=== PATIENT | male | born 1935 | race Caucasian/White ===

== ENCOUNTER 2017-04-28 07:06 | Outpatient (CLI) | payer MEDICARE ==
[2017-04-28 09:19] LABS: #Basophils 0.1 thou/uL (0.0-0.2); #Eosinphils 0.5 thou/uL (0.0-0.7); #Lymphocytes 1.6 thou/uL (1.20-3.40); #Monocytes 0.5 thou/uL (0.11-0.59); #Neutrophils 4.3 thou/uL (1.40-6.50); %Basophils 0.9 % (0.0-1.0); %Eosinophils 6.9 % (0.0-10.0); %Lymphocytes 22.9 % (21.0-51.0); %Monocytes 7.5 % (0.0-10.0); %Neutrophils 61.8 % (42.0-75.0); Hemoglobin 14.2 g/dL (14.0-18.0); Mean Corpuscular HGB CONC 32.8 g/dL (32.0-36.0); Mean Corpuscular Hemoglobin 29.6 pg (27.0-31.0); Mean Corpuscular Volume 90.4 fl (80.0-94.0); Mean Platelet Volume 6.3 fL (7.4-10.4); Platelet Count 288 thou/uL (130-400); RBC Distribution Width 13.9 % (11.5-14.5); Red Blood Cell (RBC) Count 4.78 mill/uL (4.70-6.10)
[2017-04-28 09:30] LABS: ALT (SGPT) 17 U/L (8-55); AST (SGOT) 16 U/L (5-34); Albumin 4.2 g/dL (3.4-4.8); Alkaline Phosphatase 87 U/L (40-150); Anion Gap 17 mmol/L (10-20); BUN (Urea Nitrogen) 20 mg/dL (8.4-25.7); Bilirubin, Total 0.5 mg/dL (0.2-1.2); Calc. Creatinine Clearance 0 mL/min (70-130); Calcium 9.1 mg/dL (7.8-10.44); Carbon Dioxide 24 mmol/L (23-31); Cardiac Risk 4.2 (Less than 4.5); Chloride 107 mmol/L (98-107); Cholesterol 191 mg/dl (< 200 Desired); Estimated GFR-MDRD 53; Globulin 2.7 g/dL (2.4-3.5); Glucose 98 mg/dL (83-110); HDL Cholesterol 45 mg/dL (>60 Neg Risk); LDL Cholesterol, Calculated 127 mg/dL; Potassium 3.9 mmol/L (3.5-5.1); Protein, Total 6.9 g/dL (5.8-8.1); Sodium 144 mmol/L (136-145); Triglycerides 94 mg/dL (Less than 150)
[2017-04-28 09:37] LABS: Hemoglobin A1c 5.5 % (4.0-6.0)
[2017-04-28 10:00] LABS: Free T4 (Free Thyroxine) 0.79 ng/dL (0.70-1.48); PSA-Symptomatic (DIAGNOSTIC) 0.12 ng/mL (0-4.0); Thyroid Stimulating Hormone 5.5182 uIU/mL (0.35-4.94); Vitamin D, 25 Hydroxy 30.5 ng/ml (> 30.0)
[2017-04-28] MEDS ORDERED: Iopamidol 370 76% 100 ML VIAL ONE (11:48)
--- NOTE | 2017-04-28 16:53 | CT ---
CT ABDOMEN AND PELVIS WITH IV AND ORAL CONTRAST: History: Abdominal pain. Distention. Comparison: 10-28-11 FINDINGS: The lung bases are clear. Right hip prosthesis is apparent. There is prominent calcification through out the arterial structures. The liver, spleen, kidneys, adrenal glands and pancreas have a normal C T appearance. Prominent calcifications are apparent throughout the arterial structures. Nonspecific lymph nodes are scattered about the retroperitoneum and mesentery. Diverticula arise from the colon without adjacent inflammation. IMPRESSION: 1. Atherosclerosis. 2. Chronic type findings appear stable. No acute abnormalities are demonstrated. POS: [facility]
[2017-04-28 17:34] LABS: Iron 77 ug/dL (65-175)
[2017-04-28 17:47] LABS: Ferritin 81.37 ng/mL (22-322)
== END 2017-04-28 07:07 | disposition home or self-care (01) ==
LOC: MADLAB 07:06
PROVIDERS: ATTEND Family Medicine
DX: K59.01 Slow transit constipation (principal); D53.9 Nutritional anemia, unspecified; R19.7 Diarrhea, unspecified; E78.5 Hyperlipidemia, unspecified; N40.1 Benign prostatic hyperplasia with lower urinary tract symptoms; I10 Essential (primary) hypertension; R73.9 Hyperglycemia, unspecified
CPT/HCPCS: 74177; 80053; 80061; 82306; 82728; 82746; 83036; 83540; 84153; 84439; 84443; 85025

== ENCOUNTER 2017-08-04 11:54 | Outpatient (CLI) | payer MEDICARE ==
--- NOTE | 2017-08-04 14:40 | CT ---
LUMBAR SPINE CT WITHOUT CONTRAST: 08/04/2017 HISTORY: Low back pain for several months. COMPARISON: None. TECHNIQUE: Serial axial CT imaging is obtained at 2.5 mm intervals, from the lower thoracic spine through the m id sacrum, without contrast media. Coronal and sagittal reformatted imaging obtained. FINDINGS: The lack of contrast media limits assessment of the extraosseous structures. Evaluation for central canal and/or neural foraminal stenosis is limited on routine CT. There is extensive atherosclerotic calcification of the abdominal aorta and its branches. There is partially imaged colonic diverticulosis in the pelvis. There is bilateral degenerative change invol ving the sacroiliac joints. The sagittal imaging demonstrates minimal retrolisthesis at L1-L2, measuring approximately 3 mm. T12-L1: There is disk space narrowing, anterior osteophyte formation, and a vacuum disk. There is no osseous cause of significant central canal or neural foraminal stenosis. L1-L2: There is disk space narrowing, anterior osteophyte formation, and a vacuum disk. There is n o osseous cause of significant central canal or neural foraminal stenosis. L2-L3: Mild bilateral facet hypertrophy. No osseous cause of significant central canal or neural f oraminal stenosis. L3-L4: There is bilateral facet hypertrophy and hypertrophy of the ligamentum flavum with probable at least mild central canal stenosis and probable mild bilateral neural foraminal stenosis. L4-L5: There is prominent bilateral facet hypertrophy. There is ligamentum flavum hypertrophy and mild disk bulge with at least moderate central canal stenosis suspected. Mild/moderate bilateral ne ural foraminal stenosis suspected as well. L5-S1: There is disk space narrowing and a vacuum disk. There is prominent bilateral facet hypertr ophic change. Neural foraminal stenosis is suspected on the left. No osseous cause of significant central canal stenosis. No acute fracture or evidence of dislocation is noted. IMPRESSION: 1. Multilevel degenerative change noted within the lumbar spine. This could be better assessed for central canal and/or neural foraminal stenosis via MRI or CT myelogram. 2. Atherosclerotic disease. POS: [facility]
== END 2017-08-04 11:55 | disposition home or self-care (01) ==
LOC: MADCT 11:54
PROVIDERS: ATTEND Family Medicine
DX: M54.17 Radiculopathy, lumbosacral region (principal); M54.5 Low back pain; M47.816 Spondylosis without myelopathy or radiculopathy, lumbar region; I70.90 Unspecified atherosclerosis
CPT/HCPCS: 72131

== ENCOUNTER 2018-03-13 16:48 | Outpatient (CLI) | payer MEDICARE ==
--- NOTE | 2018-03-13 18:07 | RAD ---
LEFT FOOT TWO VIEWS: HISTORY: Foot pain. COMPARISON: 03/18/2009 FINDINGS: Lisfranc joint alignment is anatomic. Pes planus is apparent on the lateral view. Amputation of the second toe is again demonstrated. Chronic deformity of the big toe with lateral vivar bluxation at the first metatarsophalangeal joint and medial dislocation at the interphalangeal joint with adjacent osteophytes are similar to the previous study. Soft tissue swelling overlies the media l aspect of the big toe with a pocket of gas within the soft tissue swelling, measuring up to 0.6 cm. Osteophytosis is present throughout the remainder of the foot. IMPRESSION: 1. Prominently soft tissue swelling at the medial aspect of the big toe. Soft tissue gas suggests u lceration. Erosion of the lateral head of the proximal phalanx suggests an active process, such as o steomyelitis. 2. Postoperative changes, degenerative changes, and other chronic deformities are otherwise stable. POS: [facility]
== END 2018-03-13 16:49 | disposition home or self-care (01) ==
LOC: MADRAD 16:48
PROVIDERS: ATTEND Family Medicine
DX: M79.89 Other specified soft tissue disorders (principal); M79.672 Pain in left foot; M19.072 Primary osteoarthritis, left ankle and foot; M21.6X2 Other acquired deformities of left foot; Z98.890 Other specified postprocedural states

== ENCOUNTER 2018-06-07 17:30 | Inpatient (IN) | payer MEDICARE ==
[2018-06-07 20:16] VITALS: BP 145/64
[2018-06-07] MEDS ORDERED: Prevnar 13-Val Conj/PF 0.5 ML SYRINGE IM ONE (21:00)
[2018-06-07 22:24] VITALS: BMI 30.4
[2018-06-07] MEDS ORDERED: rOPINIRole HCl 0.25 MG TAB PO PRN (22:40)
[2018-06-07] MEDS ORDERED: Acetaminophen 325 MG TAB PO PRN (22:45)
[2018-06-08] MEDS ORDERED: Levothyroxine Sodium 75 MCG TAB PO SCH (06:00)
[2018-06-08] MEDS ORDERED: Mometasone/Formoterol 60 PUFF AER INH SCH (07:00)
[2018-06-08] MEDS ORDERED: predniSONE 10 MG TAB PO SCH (08:00)
[2018-06-08] MEDS: hydrALAZINE 25 MG TAB PO SCH ×2 (08:52→15:56)
[2018-06-08] MEDS ORDERED: Prevnar 13-Val Conj/PF 0.5 ML SYRINGE IM ONE (09:00)
[2018-06-08] MEDS ORDERED: Allopurinol 100 MG TAB PO SCH (09:00)
[2018-06-08] MEDS ORDERED: Lisinopril 5 MG TAB PO SCH (09:00)
[2018-06-08] MEDS ORDERED: Amlodipine 5 MG TAB PO SCH (09:00)
[2018-06-08] MEDS ORDERED: Amiodarone 200 MG TAB PO SCH (09:00)
[2018-06-08] MEDS ORDERED: Nystatin Cream 15 GM TUBE TOP SCH (09:00)
[2018-06-08] MEDS ORDERED: Apixaban 5 MG TAB PO SCH (09:00)
[2018-06-08] MEDS ORDERED: Fluconazole 100 MG TAB PO SCH (09:00)
[2018-06-08 11:02] VITALS: TEMP 98
[2018-06-08] MEDS ORDERED: Lantiseptic Ointment 130 GM JAR TOP PRN (11:51)
--- NOTE | 2018-06-08 12:59 | HP ---
DATE OF ADMISSION: 06/07/2018 HISTORY OF PRESENT ILLNESS: Mr. Willis is an 83-year-old man who was admitted to [facility] on 05/19/2018 with altered mental status and atrial fibrillation with rapid ventricular response. He went through multiple medical issues including respiratory failure, medical encephalopathy, renal fa ilure, supraventricular tachycardia, aspiration pneumonia, demand ischemia and cellulitis of the left lower extremity during that hospitalization. He has recently been deemed to be stable enough for [facility] for physical therapy and occupational therapy to strengthen him so he can return home. ADMITTING HISTORY: Mr. Willis is evaluated today and has some degree of continued confusion, initiall y stating that the ambulance took him home and then brought him here to the hospital, but at other ti mes is appropriate. He is here for physical and occupational therapy and to regain his strength. Hi s sole desire is to be able to get home and sleep in his own bed. PAST MEDICAL HISTORY: His current problems include: 1. Stage AHA stage C heart failure. 2. History of atrial fibrillation with rapid ventricular response. Atrial fibrillation with rate co ntrolled by amiodarone. 3. Cellulitis of the left lower extremity which seems to be resolved. 4. Benign prostatic hypertrophy. 5. Hypertension. 6. Hypothyroidism. 7. Obesity. 8. Gout. 9. Medical encephalopathy. PAST MEDICAL HISTORY: Prior to his admission with included surgery for spinal stenosis, a hernia rep air, a right total hip replacement, bilateral hernia repair, appendectomy, spinal stenosis, benign pr ostatic hypertrophy, gout, peripheral vascular disease, depression, obesity, polyarthritis and an inf ection of the left great toe which was worrisome for osteomyelitis, but consult determined that there was not osteo at the time. REVIEW OF SYSTEMS: The patient does complain of having his backside be very sore with sitting and he does have multiple pressure ulcers and does have a fungal rash around his scrotum per nursing. SOCIAL HISTORY: He lives alone at home. Denies any current tobacco, alcohol, or recreational drug u se. FAMILY HISTORY: There is no relevant prior history. MEDICATIONS: Home medications included allopurinol had been increased 100 2 p.o. b.i.d., amlodipine 5 mg q.a.m., terazosin 5 mg at bedtime, ropinirole 1 p.o. b.i.d., nortriptyline 2 p.o. at bedtime, Me loxicam 15 mg daily, levothyroxine 75 mcg daily, tamsulosin 0.4 mg at bedtime. MEDICATIONS ON ADMISSION FROM [facility]: Include amiodarone 400 mg p.o. b.i.d., Eliquis 5 mg p.o . b.i.d., hydralazine 25 mg p.o. t.i.d., lisinopril 2.5 mg daily, Protonix 40 mg daily, prednisone 10 mg q.a.m., terazosin 10 mg p.o. at bedtime, tamsulosin, 0.4 mg at bedtime, levothyroxine 75 mcg p.o. q.a.m., allopurinol 100 mg p.o. b.i.d., amlodipine 5 mg q.a.m., ropinirole 0.25 p.o. b.i.d., nortrip tyline 20 mg p.o. at bedtime, DuoNeb 3 mL q.i.d. and p.r.n., and Dulera 200 mcg/5 mcg 2 puffs b.i.d. ALLERGIES: SULFA. CODE STATUS: He is a DNR and his daughter, Jossy Hernandez, is the medical power of attorney recruiter. He an d she have a good understanding of his wishes, which include to be able to get home to his house in h is own bed as soon as possible. PHYSICAL EXAMINATION: GENERAL: Mr. Willis is awake, alert, sitting in a Linda chair. He is not in acute distress except wh en he tries to move, when he says his back side hurts. VITAL SIGNS: Temperature 98.0, pulse 75, respiratory rate 18, O2 sat 92% on room air, blood pressure 155/71. He is on 2 liters by nasal cannula. He is afebrile. HEENT: Eyes; no icterus, no conjunctival pallor. Mucous membranes are moist. There is no erythema. There are no exudates. There are no white plaques. NECK: Supple. Trachea is trachea is midline. LUNGS: Show a few crackles about shelter up on the right with good air movement. CARDIOVASCULAR: Heart is irregular. Pulses are palpable. No carotid bruit. No pericardial rub. ABDOMEN: Bowel sounds present, soft, nontender. He is moving his bowels well. MUSCULOSKELETAL: Strength is 5/5 in the upper extremities and 3/5 in the lower extremities. He is m issing the left second toe on the right. The left great toe is misshapened status post surgery and h as a sore on it as does the bottom under the left metatarsal phalangeal joint. No adenopathy. NEURO: He is oriented to person, somewhat oriented to place and not oriented to time. He has period s of lucidity and periods of confusion. LABORATORY AND X-RAY FINDINGS: No current labs, although CBC and comp are ordered as is another x-ra y of his left foot. IMPRESSION AND PLAN: 1. Mr. Willis is an 83-year-old who had a very complicated and high intensity 3-week stay in the [facility] in [place] that included atrial fibrillation with rapid ventricular response. He was on various d rips and underwent cardioversion multiple times. He is currently stable in regards to his heart and per the hand tier. They have stated that there is no further treatment or intervention that he wo uld be able to receive or be given. He has stage C, [employer] heart failure. 2. History of sepsis. This was determined to be cleared, although his white blood cell count remain ed elevated at the hospital. Causes could be that the prednisone that he has been on, but it seems s till somewhat concerning and x-ray has not been done for 3 weeks and will be ordered here at the [facility]. If there is concern for continued infection we will put him back on vanc omycin and Zosyn as he had been initially started. 3. Weakness and medical encephalopathy due to extended ICU stay. We will continue his regular medic ations. He will be on a bed monitor and we will order physical and occupational therapy. May need t o adjust medications to help control his behavior if redirection does not work. 4. Benign prostatic hypertrophy is stable. 5. Gout also is stable. 6. Hypertension, stable. 7. Hypercholesterolemia, stable. 8. Heart failure. He is on a low sodium and fluid restricted diet. 9. Skin breakdown. He has been started on Diflucan. He has also been ordered Lantiseptic and Lotri min for the excoriated area on his scrotum and various treatments for the skin breakdown over his sac rum. I did already have an extended discussion with his daughter and if he does not respond to therapy wit h some increasing strength and improvement, she is also willing to consider changing his designation to a hospice designation with the hope of then getting him home on home hospice.
[2018-06-08 13:13] LABS: #Eosinphils 0.3 thou/uL (0.0-0.7); #Lymphocytes 0.7 thou/uL (1.20-3.40); #Monocytes 0.5 thou/uL (0.11-0.59); #Neutrophils 11.8 thou/uL (1.40-6.50); %Basophils 0.3 % (0.0-1.0); %Lymphocytes 5.4 % (21.0-51.0); %Neutrophils 88.3 % (42.0-75.0); Hemoglobin 10.9 g/dL (14.0-18.0); Mean Corpuscular HGB CONC 32.6 g/dL (32.0-36.0); Mean Corpuscular Hemoglobin 28.8 pg (27.0-31.0); Mean Corpuscular Volume 88.3 fL (78.0-98.0); Mean Platelet Volume 6.5 fL (7.4-10.4); Platelet Count 367 thou/uL (130-400); RBC Distribution Width 15.5 % (11.5-14.5); Red Blood Cell (RBC) Count 3.77 mill/uL (4.70-6.10); White Blood Cell (WBC) Count 13.4 thou/uL (4.8-10.8)
[2018-06-08 13:31] LABS: ALT (SGPT) 132 U/L (8-55); AST (SGOT) 31 U/L (5-34); Alkaline Phosphatase 75 U/L (40-150); Anion Gap 17 mmol/L (10-20); BUN (Urea Nitrogen) 34 mg/dL (8.4-25.7); Bilirubin, Total 0.7 mg/dL (0.2-1.2); Calc. Creatinine Clearance 52 mL/min (70-130); Calcium 8.7 mg/dL (7.8-10.44); Carbon Dioxide 28 mmol/L (23-31); Chloride 102 mmol/L (98-107); Estimated GFR-MDRD 49; Glucose 155 mg/dL (83-110); Potassium 3.9 mmol/L (3.5-5.1); Sodium 143 mmol/L (136-145)
--- NOTE | 2018-06-08 13:36 | DIS ---
HOSPITAL COURSE: Mr. Willis is an 83-year-old, who we just admitted with heart failure, atrial fibril lation, cellulitis, BPH, hypertension, hypothyroidism, obesity, and medical encephalopathy. He is to be discharged with a diagnosis of osteomyelitis and sepsis encephalopathy likely and sent back to [facility] for a probable amputation of the left great toe due to worsening osteomyelitis. X-ray was done at the bedside today, which showed that; and a CBC and comp met are pending. He will need IV antibiotics and a surgical consultation for amputation. This should resolve the sepsis, at which time we would be most happy to take him back for physical and occupational therapy. The transfer is in process.
--- NOTE | 2018-06-08 14:01 | RAD ---
TWO VIEWS OF LEFT FOOT: INDICATION: Cellulitis of the left foot. COMPARISON: Prior exam dated 03/18/09. FINDINGS: There is soft tissue swelling in the left great toe as well as the forefoot. There is soft tissue ga s seen along the medial aspect of the left great toe which may be related to a wound or gas gangrene There is destructive osteolysis involving the medial aspect of the great toe Proximal phalangeal head suspicious for osteomyelitis. There is worsening lateral subluxation of the great toe IP joint. Th ere is stable partial ray amputation of the 2nd due through the proximal phalanx. There is scattered osteoarthrosis of the forefoot and mid foot. Lisfranc alignment appears preserved. Enthesopathic c hange is seen throughout the calcaneus. IMPRESSION: 1. Prominent soft tissue swelling of the left great toe with soft tissue gas seen along the medial a spect of the great toe may be related to a focal soft tissue wound versus gas gangrene 2. Destructive osteolysis of the medial head of the left great toe proximal phalanx suspicious for o steomyelitis. POS: [facility]
[2018-06-08] MEDS ORDERED: Nortriptyline 10 MG CAP PO SCH (21:00)
[2018-06-08] MEDS ORDERED: Terazosin HCl 5 MG CAP PO SCH (21:00)
[2018-06-08] MEDS ORDERED: Tamsulosin HCl 0.4 MG CAP PO SCH (21:00)
[2018-06-09] MEDS ORDERED: Clotrimazole 1% Cream 15 GM TUBE TOP SCH (09:00)
== END 2018-06-08 15:01 | disposition short-term general hospital (02) | DRG 947 ==
LOC: MADMS 19:19
PROVIDERS: ADMIT Family Medicine; ATTEND Family Medicine
DX: R53.1 Weakness (principal); G93.41 Metabolic encephalopathy; M86.8X7 Other osteomyelitis, ankle and foot; Z87.01 Personal history of pneumonia (recurrent); I48.91 Unspecified atrial fibrillation; N40.0 Benign prostatic hyperplasia without lower urinary tract symptoms; I10 Essential (primary) hypertension; E03.9 Hypothyroidism, unspecified; E66.9 Obesity, unspecified; Z96.641 Presence of right artificial hip joint; F32.9 Major depressive disorder, single episode, unspecified; M13.0 Polyarthritis, unspecified; Z66 Do not resuscitate; M10.9 Gout, unspecified; E78.00 Pure hypercholesterolemia, unspecified; L89.159 Pressure ulcer of sacral region, unspecified stage; Z68.30 Body mass index [BMI] 30.0-30.9, adult
CPT/HCPCS: 36415; 80053; 85025; 90471; 90670; 94640; G0009; G8978-GP-CM; G8979-GP-CJ; G8987-GO-CM; G8988-GO-CI; J7512; J7620

== ENCOUNTER 2018-06-13 15:00 | Inpatient (IN) | payer MEDICARE ==
[2018-06-13] MEDS ORDERED: rOPINIRole HCl 0.25 MG TAB PO PRN (19:04)
[2018-06-13] MEDS ORDERED: Acetaminophen 325 MG TAB PO PRN (19:04)
[2018-06-13] MEDS: Amiodarone 200 MG TAB PO SCH (21:59)
[2018-06-13] MEDS: Allopurinol 100 MG TAB PO SCH (21:59)
[2018-06-13] MEDS: Apixaban 5 MG TAB PO SCH (22:00)
[2018-06-13] MEDS: hydrALAZINE 25 MG TAB PO SCH (22:01)
[2018-06-13] MEDS: Mometasone/Formoterol 60 PUFF AER INH SCH (22:02)
[2018-06-13] MEDS: Tamsulosin HCl 0.4 MG CAP PO SCH (22:03)
[2018-06-13] MEDS: Terazosin HCl 5 MG CAP PO SCH (22:03)
--- NOTE | 2018-06-14 01:19 | HP ---
Admitted to [facility] on 06/13/2018. CHIEF COMPLAINT: Weakness. PRESENT ILLNESS: Patient is an 83-year-old white male who lives with his daughter and is independent of his ADLs, but requires assistance with all his instrumental ADLs. He has a history of atrial fib rillation, peripheral vascular disease, BPH, and gout. Patient had been hospitalized at [facility] from 05/19/2018 until 06/07/2018. He was admitted with atrial fibrillation with rapid vent ricular response with some congestive heart failure. He was treated with a Cardizem drip and amiodar one drip, eventually with rate controlled. His echocardiogram was done and showed ejection fraction of 40%-50% with dilated inferior vena cava. While in the hospital, he became very confused and was i n respiratory failure and required intubation and respiratory support for several days. He had gone into congestive heart failure with respiratory failure as a result of his atrial fibrillation again w ith rapid ventricular response again if rate was eventually controlled with addition of IV Cardizem d rip and amiodarone. While in the hospital, he also was found to have a cellulitis with his left low er leg that was treated and a possible aspiration pneumonia, patient improved. His encephalopathy re solved, but he was left extremely weak. He was transferred to [facility] on 05/21. Patient there, became again very confused and agitated, and there was concern because his le ft great toe was yvette and swelled and was concerned about osteomyelitis. He was sent back to [facility] and hospitalized for the encephalopathy and possible osteomyelitis of the foot. The p atient's encephalopathy resolved. The left great toe was evaluated. He underwent vascular ultrasoun d arterial that showed some decreased circulation. He was also seen by general surgeon, Dr. Small, and also cardiovascular surgeon who felt that patient did not have any evidence of acute abscess and the patient demonstrated moderate capillary refill and a wound that had been on the left great toe h ad healed. Vascular surgeon did not feel like there was any need for any acute intervention or any t ype of vascular intervention. X-rays that showed some evidence of destruction on the proximal phalan x of the left great toe, but according to the patient, the toe did not look any different. It is fel t that this may have been erosive or destructive changes even from gouty arthritis that he has had on multiple occasions. The patient improved and the physicians did not feel like he had osteomyelitis. Patient though encephalopathy resolved and he remained in an atrial fibrillation with rate controll ed and remained on anticoagulants and amiodarone. Patient though was left very weak and was elected to sent him back to [facility] on 06/13/2018 for physical therapy. Patient's [facility] physician is Dr. Kristie Moreira that he had asked me to look on patient in her absence. Patient was seen soon after his admission, he was sitting up and was able to tell me about been recen tly in the hospital and tell me about the problems he has had this left great toe with episodes of go ut and lawnmower injury years ago to the toe, says right now the toes feeling fine, it is not hurting and he does not think it looks any different when the vascular surgeon had seen him today and told h im that he did not want any type of surgical intervention. The patient right now is doing good, he i s just weak. PAST HISTORY: Chronic atrial fibrillation, hospitalized at [facility] from 05/19/2018 until 06/07/2018 for atrial fibrillation with rapid ventricular response. Complicated by congestive heart failure requiring intubation and ventilatory support while hospitalized. He has had an aspiration p neumonia that resolved in his cellulitis of the left leg. Patient has history of gout, history of co ngestive heart failure. Transesophageal echocardiogram showing an ejection fraction of 40%-50%, atri al fibrillation for which he went through cardioversion on 2 occasions during this recent hospitaliza tion. Patient has hypertension, peripheral vascular disease, hypothyroidism, gastroesophageal reflux disease, right total hip replacement, spinal surgery on low back, hernia repair, bilateral inguinal appendectomy, amputation of the left second toe, history of melanoma widely excised, COPD and BPH. PRESENT MEDICINES: Amiodarone 400 mg b.i.d., allopurinol 100 mg b.i.d., Tylenol 650 mg every 8 hours as needed, amlodipine 5 mg daily, Eliquis 5 mg b.i.d., DuoNeb nebulizer q.i.d., lisinopril 2.5 mg da rigoberto, levothyroxine 75 mcg daily, nortriptyline 20 mg at bedtime, Dulera 2 puffs b.i.d., Flomax 0.4 mg at bedtime, Protonix 40 mg daily, hydralazine 25 mg t.i.d., terazosin 10 mg at bedtime, prednisone 1 0 mg daily, ropinirole 0.25 mg b.i.d. ALLERGIES: SULFA DRUGS. REVIEW OF SYSTEMS: Patient said he does not think he has had any fever. He does think his weight akers s changed. Head and Neck: No complaints. Pulmonary: No shortness of breath. Cardiovascular: No chest pain. Gastrointestinal: No complaints. Genitourinary: No complaint. Musculoskeletal: Mary ent says he has some soreness in his joints. His left foot looks the same to him that it has. HABITS: Patient smoked for many years and drank for many years, but stopped both. SOCIAL HISTORY: Patient lives with his daughter. He is independent of his ADLs. He requires assist ance with all of his instrumental ADLs. CODE STATUS: During his hospitalization from 05/19/2018 to 06/08/2018 his is on a ventilator. Mason tanisha has changed his code status to DNR. PHYSICAL EXAMINATION: GENERAL: Shows a very pleasant 83-year-old white male who was sitting up on the edge of the bed, eat ing his supper. He is very talkative and appeared in no distress. VITAL SIGNS: Shows a temperature of 98.3, pulse 70, respirations 20, O2 sat 92% on room air, blood p ressure 177/76. HEAD: Normocephalic. EYES: Pupils are equal, round, and reactive. EARS: TMs are clear. NOSE: Normal. MOUTH AND THROAT: Normal. NECK: Carotids, have an irregular rhythm, no bruits. LUNGS: Clear. HEART: Irregular rhythm. No murmurs. ABDOMEN: No organomegaly, no areas of tenderness. EXTREMITIES: No edema of the left foot, could not feel pulses in the foot. The foot is warm. He akers s had a previous amputation of the left second toe that is well healed. The right toe is larger than the left that is pink. There is no increased heat. The toe was nontender. The tip of the toe is d eviated a little leftward. There was a slight scab on the medial side of the toe, where apparently w as small sore that is almost totally healed. There is moderate capillary refill in the tip of the to e though right foot is warm. There is no pulses, has good capillary refill on the plantar surface of the foot. There is a superficial ulceration over the plantar head of the first MP joint with some s urrounding callus area looks clean. IMPRESSION: 1. Generalized weakness. 2. Chronic atrial fibrillation. A. On anticoagulation with Eliquis. B. On amiodarone. C. Hospitalized from 05/19/2018 to 06/08/2018 with atrial fibrillation with rapid ventricular respon se and respiratory failure requiring ventilatory support, treatment with Cardizem, amiodarone drip, a nd cardioversion. D. Rate controlled as of 06/13/2018. 3. Recent cellulitis of left lower leg, resolved. 4. 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 A. Secondary to probably erosive changes possibly from the gout. Presently stable. No evidence of acute infection recent one on the medial edge of the foot healing. 5. Superficial ulceration on the plantar surface of the right foot over the first metatarsophalangea l joint. 6. Hypertension. 7. Cardiomyopathy. A. Echocardiogram on 05/23/2018 showed an ejection fraction of 40%-50% with some enlargement of the left ventricle and left atrium with moderate mitral regurgitation and IVC dilated. 8. Peripheral vascular disease. 9. History of gout. 10. Chronic obstructive pulmonary disease. PLAN: Patient apparently is much better than when he was initially hospitalized on 05/19/2018 with r esolution to the atrial fibrillation with rapid ventricular response. He has no evidence of acute co ngestive heart failure present. Aspiration pneumonia is resolved and the cellulitis left lower leg i s resolved. His left great toe is stable. There is no evidence of acute infection and physicians in [facility] did not think there was an osteomyelitis. The patient's foot is stable. He cruz s not want any intervention and has an ulcer on the plantar surface of the right foot that will be cl eaned and dressed with the Mepilex daily. We will continue his present medicines with his age. We w ill reduce the Eliquis to 2.5 mg b.i.d. to help reduce bleeding risk. PT and OT will work with him. CODE STATUS: DNR.
[2018-06-14 05:34] LABS: #Basophils 0.1 thou/uL (0.0-0.2); #Eosinphils 0.4 thou/uL (0.0-0.7); #Lymphocytes 1.4 thou/uL (1.20-3.40); #Monocytes 0.5 thou/uL (0.11-0.59); #Neutrophils 7.2 thou/uL (1.40-6.50); %Basophils 0.6 % (0.0-1.0); %Lymphocytes 14.6 % (21.0-51.0); %Monocytes 5.1 % (0.0-10.0); %Neutrophils 75.6 % (42.0-75.0); Hemoglobin 10.4 g/dL (14.0-18.0); Mean Corpuscular HGB CONC 31.8 g/dL (32.0-36.0); Mean Corpuscular Hemoglobin 28.1 pg (27.0-31.0); Mean Corpuscular Volume 88.3 fL (78.0-98.0); Mean Platelet Volume 6.5 fL (7.4-10.4); Platelet Count 360 thou/uL (130-400); RBC Distribution Width 16.1 % (11.5-14.5); Red Blood Cell (RBC) Count 3.69 mill/uL (4.70-6.10); White Blood Cell (WBC) Count 9.5 thou/uL (4.8-10.8)
[2018-06-14 05:46] LABS: ALT (SGPT) 47 U/L (8-55); AST (SGOT) 19 U/L (5-34); Alkaline Phosphatase 62 U/L (40-150); Anion Gap 14 mmol/L (10-20); BUN (Urea Nitrogen) 11 mg/dL (8.4-25.7); Bilirubin, Total 0.6 mg/dL (0.2-1.2); Calc. Creatinine Clearance 0 mL/min (70-130); Calcium 8.2 mg/dL (7.8-10.44); Carbon Dioxide 26 mmol/L (23-31); Chloride 107 mmol/L (98-107); Estimated GFR-MDRD 50; Globulin 2.7 g/dL (2.4-3.5); Glucose 88 mg/dL (83-110); Potassium 4.1 mmol/L (3.5-5.1); Protein, Total 5.7 g/dL (5.8-8.1)
[2018-06-14 05:49] LABS: Sodium 143 mmol/L (136-145)
[2018-06-14] MEDS: Levothyroxine Sodium 75 MCG TAB PO SCH (05:57)
[2018-06-14] MEDS: Mometasone/Formoterol 60 PUFF AER INH SCH ×2 (08:35→20:39)
[2018-06-14] MEDS: Allopurinol 100 MG TAB PO SCH ×2 (08:37→20:37)
[2018-06-14] MEDS: Apixaban 5 MG TAB PO SCH ×2 (08:37→20:40)
[2018-06-14] MEDS: hydrALAZINE 25 MG TAB PO SCH ×3 (08:37→20:38)
[2018-06-14] MEDS: Amiodarone 200 MG TAB PO SCH ×2 (08:38→20:38)
[2018-06-14] MEDS: predniSONE 20 MG TAB PO SCH (08:39)
[2018-06-14] MEDS: Amlodipine 5 MG TAB PO SCH (08:39)
[2018-06-14] MEDS: Lisinopril 5 MG TAB PO SCH (08:39)
[2018-06-14] MEDS ORDERED: Prevnar 13-Val Conj/PF 0.5 ML SYRINGE IM ONE (09:00)
--- NOTE | 2018-06-14 10:12 | PRG ---
DATE OF SERVICE: 06/14/2018 SUBJECTIVE: The patient said he had a good night. He is feeling good this morning. The patient is awake, looks very comfortable, has no complaint. He said he felt like he needed to urinate, but when he got up he did not. He is not having any dysuria. The patient said his toes are not bothering hi m. He recognized me and correctly recalled my name. OBJECTIVE: The patient is alert, appears comfortable, in no distress. His temperature is 98.3, puls e 71, respirations 22, O2 sat 94% on room air, blood pressure 175/77. He has not yet had his morning BP meds. Lungs are clear. Heart, irregularly irregular rhythm. Extremities, no edema. Left great toe looks unchanged. There is no open wound. No areas of tenderness. No drainage. LABORATORY DATA: Lab shows an H and H of 10.4 and 32.6, white cell count 9500 with 76% segs, 15% lym phocytes, and a platelet count of 360. Sodium 143, potassium 4.1, BUN 11, creatinine 1.37, GFR 50. FBS 88. ASSESSMENT: 1. Generalized weakness. A. Improved as of 06/14/2018. 2. Chronic atrial fibrillation. A. On anticoagulation with Eliquis. B. On amiodarone. C. Hospitalized from 05/19/2018 to 06/08/2018 with atrial fibrillation with rapid ventricular respon se and respiratory failure requiring ventilatory support, treatment with Cardizem, amiodarone drip, a nd cardioversion. D. Rate controlled as of 06/14/2018. 3. Recent cellulitis of left lower leg, resolved. 4. 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 A. History of gout that may have resulted in the erosive changes noted in the proximal phalanx. B. Recent superficial ulceration on the toe has healed as of 06/14/2018. 5. Superficial ulceration on the plantar surface of the right foot over the first metatarsophalangea l joint. 6. Hypertension. 7. Cardiomyopathy. A. Echocardiogram on 05/23/2018 showed an ejection fraction of 40%-50% with some enlargement of the left ventricle and left atrium with moderate mitral regurgitation and IVC dilated. B. No evidence of acute congestive heart failure. 8. Peripheral vascular disease. 9. History of gout. 10. Chronic obstructive pulmonary disease. PLAN: Continue present care. Continue wound care to the plantar aspect of the right foot. Continue PT and OT.
[2018-06-14] MEDS: Chloraseptic Spray 180 ml Bottle PO PRN ×2 (16:17→22:36)
[2018-06-14] MEDS: Terazosin HCl 5 MG CAP PO SCH (20:40)
[2018-06-14] MEDS: Tamsulosin HCl 0.4 MG CAP PO SCH (20:40)
[2018-06-14] MEDS ORDERED: Amiodarone 200 MG TAB PO SCH (21:15)
[2018-06-15] MEDS: Chloraseptic Spray 180 ml Bottle PO PRN (02:30)
[2018-06-15] MEDS: Levothyroxine Sodium 75 MCG TAB PO SCH (05:40)
[2018-06-15] MEDS: Allopurinol 100 MG TAB PO SCH ×2 (08:18→21:10)
[2018-06-15] MEDS: Amlodipine 5 MG TAB PO SCH (08:18)
[2018-06-15] MEDS: hydrALAZINE 25 MG TAB PO SCH ×3 (08:19→21:20)
[2018-06-15] MEDS: predniSONE 20 MG TAB PO SCH (08:20)
[2018-06-15] MEDS: Lisinopril 5 MG TAB PO SCH (08:21)
[2018-06-15] MEDS: Apixaban 5 MG TAB PO SCH ×2 (08:22→21:10)
[2018-06-15] MEDS: Mometasone/Formoterol 60 PUFF AER INH SCH ×2 (08:23→22:21)
[2018-06-15] MEDS: Amiodarone 200 MG TAB PO SCH ×2 (08:25→21:10)
--- NOTE | 2018-06-15 13:51 | PRG ---
DATE OF SERVICE: 06/15/2018 SUBJECTIVE: The patient thinks he is doing better. He hopes to go home soon. He lives with his last ghter and will talk with her. The patient is eating good. He is getting around better. He thinks h e will do better at home. OBJECTIVE: The patient is sitting up in a chair. He looks very good. He is in no distress. Very t alkative, recognizes me and correctly calls my name. Temperature is 98, pulse 70, blood pressure 156 /67, respirations 22, O2 sat 91% on room air. His lungs, he has some coarse expiratory breath sounds , but no rales. I did not hear any wheeze. Heart, regular rate. Extremities, no edema. Left great toe is unchanged. There are no open wounds, no drainage, no tenderness. The patient is doing toshia r with physical therapy, walking up to 50 feet with his rolling walker. He is requiring moderate ass istance with transfers. ASSESSMENT: 1. Generalized weakness. A. Improved. Walking further. Still requires moderate assistance with transfers as of 06/15/2018. 2. Chronic atrial fibrillation. A. On anticoagulation with Eliquis. B. On amiodarone. C. Hospitalized from 05/19/2018 to 06/08/2018 with atrial fibrillation with rapid ventricular respon se and respiratory failure requiring ventilatory support, treatment with Cardizem, amiodarone drip, a nd cardioversion. D. Rate controlled as of 06/15/2018. 3. Recent cellulitis of left lower leg, resolved. 4. 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 A. History of gout that may have resulted in the erosive changes noted in the proximal phalanx. B. Recent superficial ulceration on the toe has healed as of 06/14/2018. 5. Superficial ulceration on the plantar surface of the right foot over the first metatarsophalangea l joint. A. Improving as of 06/15/2018. 6. Hypertension. 7. Cardiomyopathy. A. Echocardiogram on 05/23/2018 showed an ejection fraction of 40%-50% with some enlargement of the left ventricle and left atrium with moderate mitral regurgitation and IVC dilated. B. No evidence of acute congestive heart failure as of 06/15/2018. 8. Peripheral vascular disease. 9. History of gout. 10. Chronic obstructive pulmonary disease. A. Stable as of 06/15/2018. PLAN: Continue present care. Will encourage the patient to stay longer. I think it will assist wit h not only his wound care, but to help with his transfer and ambulation.
[2018-06-15] MEDS: Terazosin HCl 5 MG CAP PO SCH (21:20)
[2018-06-15] MEDS: Lantiseptic Ointment 130 GM JAR TOP SCH (21:21)
[2018-06-15] MEDS: Tamsulosin HCl 0.4 MG CAP PO SCH (21:21)
[2018-06-16] MEDS: Chloraseptic Spray 180 ml Bottle PO PRN ×4 (01:30→16:12)
[2018-06-16] MEDS: Levothyroxine Sodium 75 MCG TAB PO SCH (05:09)
[2018-06-16 06:15] LABS: #Basophils 0.1 thou/uL (0.0-0.2); #Eosinphils 0.3 thou/uL (0.0-0.7); #Lymphocytes 1.5 thou/uL (1.20-3.40); #Monocytes 0.6 thou/uL (0.11-0.59); #Neutrophils 10.3 thou/uL (1.40-6.50); %Basophils 0.5 % (0.0-1.0); %Eosinophils 2.7 % (0.0-10.0); %Lymphocytes 11.7 % (21.0-51.0); %Monocytes 4.7 % (0.0-10.0); %Neutrophils 80.4 % (42.0-75.0); Hemoglobin 10.6 g/dL (14.0-18.0); Mean Corpuscular HGB CONC 32.3 g/dL (32.0-36.0); Mean Corpuscular Hemoglobin 28.6 pg (27.0-31.0); Mean Corpuscular Volume 88.6 fL (78.0-98.0); Mean Platelet Volume 6.3 fL (7.4-10.4); Platelet Count 371 thou/uL (130-400); Red Blood Cell (RBC) Count 3.71 mill/uL (4.70-6.10); White Blood Cell (WBC) Count 12.8 thou/uL (4.8-10.8)
[2018-06-16 06:25] LABS: Anion Gap 17 mmol/L (10-20); BUN (Urea Nitrogen) 21 mg/dL (8.4-25.7); Calc. Creatinine Clearance 53 mL/min (70-130); Calcium 8.8 mg/dL (7.8-10.44); Carbon Dioxide 24 mmol/L (23-31); Chloride 104 mmol/L (98-107); Estimated GFR-MDRD 46; Glucose 103 mg/dL (83-110); Potassium 4.3 mmol/L (3.5-5.1); Sodium 141 mmol/L (136-145)
[2018-06-16] MEDS: Mometasone/Formoterol 60 PUFF AER INH SCH ×2 (08:17→21:15)
[2018-06-16] MEDS: Amiodarone 200 MG TAB PO SCH ×2 (08:17→21:13)
[2018-06-16] MEDS: Apixaban 5 MG TAB PO SCH ×2 (08:18→21:13)
[2018-06-16] MEDS: Lisinopril 5 MG TAB PO SCH (08:18)
[2018-06-16] MEDS: hydrALAZINE 25 MG TAB PO SCH ×3 (08:18→21:14)
[2018-06-16] MEDS: Amlodipine 5 MG TAB PO SCH (08:19)
[2018-06-16] MEDS: Allopurinol 100 MG TAB PO SCH ×2 (08:19→21:12)
[2018-06-16] MEDS: predniSONE 20 MG TAB PO SCH (08:20)
[2018-06-16] MEDS: Lantiseptic Ointment 130 GM JAR TOP SCH ×2 (08:21→21:14)
--- NOTE | 2018-06-16 09:16 | RAD ---
CHEST PA AND LATERAL: HISTORY: An 83-year-old male with a history of bloody sputum. FINDINGS: Extensive bilateral alveolar nodular and interstitial changes, showing definite worsening when compar ed to the 06/07/2018 study. There is developing confluence in the left mid lung zone. Blunting of b oth costophrenic angles, suggesting pleural effusions. Heart size is within normal limits. IMPRESSION: Worsening bilateral alveolar and interstitial parenchymal changes becoming somewhat confluent in the left mid lung zone. Stable bilateral costophrenic angle blunting. Continued short-term followup for clearing. POS: OFF
[2018-06-16] MEDS ORDERED: predniSONE 20 MG TAB PO SCH (09:49)
[2018-06-16] MEDS ORDERED: Cefdinir 300 MG CAP PO SCH ×2 (10:00→21:00)
--- NOTE | 2018-06-16 12:55 | PRG ---
DATE OF SERVICE: 06/16/2018 SUBJECTIVE: The patient said he is doing pretty good this morning. Last night, he had a little dip in his oxygen saturation down to around 88-90 and he was placed on supplemental O2. He was coughing a little bit. Nurses said he was a little bit out of character, was a little bit more disinhibited. They said that his son-in-law had brought him in a drink of [place] whiskey and coke last evenin g. This morning, he seems a lot more subtle and talkative and said he is feeling good. He does not have any breathing trouble. OBJECTIVE: GENERAL: The patient is sitting up in a bedside chair, just having completely eaten all of his break fast. He appears comfortable, talkative, in no distress. VITAL SIGNS: His temperature is 98, pulse 74, blood pressure 133/65, respirations 22, O2 sat 90% on 2 liters. His weight is 214. LUNGS: Have good breath sounds with some coarse expiratory breath sounds, no wheeze. HEART: Regula r rate. EXTREMITIES: His right foot, the ulcer beneath the first MP joint of the right foot looks better. I t is just pink and smaller and looks like has a thin layer of epithelial cells overlying the surface. There is no surrounding redness, no drainage. In his left foot, the big toe has a reddish hue with foot dependent. The foot is nontender. He has no increased heat, no open wounds. LABORATORY DATA AND IMAGING: His H&H is 10.6 and 32.9, white cell count 12,800 with 80% segs, 12% ly mphocytes, and a platelet count of 371,000. His sodium is 141, potassium 4.3. His BUN is 21, creati nine 1.46. GFR dropped from 50-46. FBS 103. His chest x-ray that was done this morning shows that the heart size is normal. The patient has bilateral alveolar interstitial infiltrates, worse on the left side with some increasing confluence in the middle lobe. Radiologist feels like this is a littl e worse compared to x-ray done on 06/07/2018. There is also blunting of the costophrenic angles. ASSESSMENT: 1. Generalized weakness. A. Improved. Walking further. Still requires moderate assistance with transfers as of 06/16/2018. 2. Chronic atrial fibrillation. A. On anticoagulation with Eliquis. B. On amiodarone. C. Hospitalized from 05/19/2018 to 06/08/2018 with atrial fibrillation with rapid ventricular respon se and respiratory failure requiring ventilatory support, treatment with Cardizem, amiodarone drip, a nd cardioversion. D. Rate controlled as of 06/16/2018. 3. Recent cellulitis of left lower leg, resolved. 4. 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 A. History of gout that may have resulted in the erosive changes noted in the proximal phalanx. B. Recent superficial ulceration on the toe has healed as of 06/14/2018. C. Stable. No signs of infection as of 06/16/2018. 5. Superficial ulceration on the plantar surface of the right foot over the first metatarsophalangea l joint. A. Improving as of 06/16/2018. 6. Hypertension. 7. Cardiomyopathy. A. Echocardiogram on 05/23/2018 showed an ejection fraction of 40%-50% with some enlargement of the left ventricle and left atrium with moderate mitral regurgitation and IVC dilated. B. Evidence of some mild failure with some bilateral blunting of the costophrenic angles suggestive of small pleural effusions as of 06/16/2018. 8. Peripheral vascular disease. 9. History of gout. 10. Chronic obstructive pulmonary disease. A. Mild exacerbation as of 06/16/2018. 11. Probable bilateral pneumonia. A chest x-ray showing some chronic alveolar interstitial infiltra keegan, more confluence on the left middle lobe as of 06/16/2018. PLAN: We will place the patient on antibiotics using Omnicef 300 mg b.i.d. We will increase his caitlyn roids. We will place the patient on Mucinex and continue his regular dosing of the nebulizer. We wi ll start him on furosemide and monitor his weight daily.
[2018-06-16] MEDS ORDERED: Furosemide 20 MG TAB PO SCH (14:00)
[2018-06-16] MEDS ORDERED: Acetaminophen 325 MG TAB PO PRN (20:08)
[2018-06-16] MEDS ORDERED: Furosemide 40 MG/4 ML VIAL SLOW IVP SCH (20:15)
[2018-06-16] MEDS ORDERED: cefTRIAXone\\ROCEPHIN 1 GM in Sodium Chloride 0.9% 100 ML IVPB SCH (21:00)
[2018-06-16] MEDS: Terazosin HCl 5 MG CAP PO SCH (21:16)
[2018-06-16] MEDS: Tamsulosin HCl 0.4 MG CAP PO SCH (21:16)
[2018-06-17] MEDS: Lorazepam 1 MG TAB PO PRN ×3 (03:51→22:01)
[2018-06-17] MEDS: Levothyroxine Sodium 75 MCG TAB PO SCH (06:09)
[2018-06-17 08:00] LABS: #Lymphocytes 0.4 thou/uL (1.20-3.40); #Monocytes 0.1 thou/uL (0.11-0.59); #Neutrophils 9.6 thou/uL (1.40-6.50); %Basophils 0.1 % (0.0-1.0); %Eosinophils 0.1 % (0.0-10.0); %Lymphocytes 4.1 % (21.0-51.0); %Monocytes 1.3 % (0.0-10.0); %Neutrophils 94.3 % (42.0-75.0); Mean Corpuscular HGB CONC 32.5 g/dL (32.0-36.0); Mean Corpuscular Hemoglobin 28.6 pg (27.0-31.0); Mean Corpuscular Volume 87.8 fL (78.0-98.0); Mean Platelet Volume 6.2 fL (7.4-10.4); Platelet Count 398 thou/uL (130-400); RBC Distribution Width 15.6 % (11.5-14.5); Red Blood Cell (RBC) Count 3.83 mill/uL (4.70-6.10); White Blood Cell (WBC) Count 10.2 thou/uL (4.8-10.8)
[2018-06-17] MEDS ORDERED: predniSONE 20 MG TAB PO SCH (08:00)
[2018-06-17 08:12] LABS: Anion Gap 19 mmol/L (10-20); BUN (Urea Nitrogen) 30 mg/dL (8.4-25.7); Calc. Creatinine Clearance 49 mL/min (70-130); Carbon Dioxide 24 mmol/L (23-31); Chloride 103 mmol/L (98-107); Estimated GFR-MDRD 42; Glucose 149 mg/dL (83-110); Sodium 142 mmol/L (136-145)
[2018-06-17] MEDS ORDERED: Furosemide 40 MG/4 ML VIAL SLOW IVP SCH (09:00)
[2018-06-17] MEDS: Chloraseptic Spray 180 ml Bottle PO PRN ×2 (09:27→17:50)
[2018-06-17] MEDS: Amlodipine 5 MG TAB PO SCH (09:29)
[2018-06-17] MEDS: Apixaban 5 MG TAB PO SCH ×2 (09:29→19:58)
[2018-06-17] MEDS: Lisinopril 5 MG TAB PO SCH (09:30)
[2018-06-17] MEDS: Amiodarone 200 MG TAB PO SCH ×2 (09:30→19:57)
[2018-06-17] MEDS: hydrALAZINE 25 MG TAB PO SCH ×3 (09:48→19:58)
[2018-06-17] MEDS: Allopurinol 100 MG TAB PO SCH ×2 (09:48→19:57)
[2018-06-17] MEDS: Lantiseptic Ointment 130 GM JAR TOP SCH ×2 (09:49→19:59)
[2018-06-17] MEDS: Mometasone/Formoterol 60 PUFF AER INH SCH ×2 (09:49→19:59)
[2018-06-17] MEDS: Cefepime 1 GM in Sodium Chloride 0.9% 100 ML IVPB SCH (11:16)
[2018-06-17] MEDS: Furosemide 40 MG/4 ML VIAL SLOW IVP SCH (14:15)
[2018-06-17] MEDS: Tamsulosin HCl 0.4 MG CAP PO SCH (20:01)
[2018-06-17] MEDS: Terazosin HCl 5 MG CAP PO SCH (20:01)
--- NOTE | 2018-06-17 20:39 | PRG ---
DATE OF SERVICE: 06/17/2018 SUBJECTIVE: The patient said he is feeling a lot better this morning. Last night, he became very sh ort of breath and that was aggravated by lying down. His O2 saturations raised and dropped. He has had increased edema in his legs. He was not running any fever. He ended up having to have 100% nonr ebreathing mask and with his O2 sat linda to 95%. He was started on IV Lasix and was switched to IV a ntibiotics using Rocephin and became very agitated and eventually required Ativan 1 mg p.o. that did help some. He slept for a while and then got up on his own and fell. No injuries, but took multiple people to help him up. This morning, he is up in a Linda chair. He is very talkative and says he fe els a lot better. He says he just needs to get up and have a bowel movement. He says his breathing is doing better. He has been urinating frequently. He says his breathing is much improved. OBJECTIVE: GENERAL APPEARANCE: The patient is sitting up in a geriatric chair. He is very talkative and appear s comfortable in no distress. VITAL SIGNS: He has no supplemental oxygen on and his O2 sat on room air is 95%. His temperature is 98.3, pulse 72, blood pressure 144/63. His accurate I&O could not be obtained due to episodes of in continence and not saving his urine, so it could be measured, on 06/14/2018 weight was 214, today's w eight is pending. LUNGS: Patient has expiratory rhonchi and some wheezes over the left posterior chest. There are tena e rales at the left posterior chest and mild wheeze over the anterior chest. Breath sounds are good. HEART: Has regular rate. MUSCULOSKELETAL: Lower extremities have 1+ edema. LABORATORY DATA: His lab this morning shows an hemoglobin and hematocrit of 11 and 33.7, white blood cell count is 10,200, 94% segs, 4% lymphocytes, platelet count of 398,000. Sodium 142, potassium 4, BUN is up to 30, creatinine 1.57, GFR down to 42. His glucose was 149 during the night. He was als o started on IV steroids. ASSESSMENT: 1. Generalized weakness. A. Initial improvement. Some increased weakness and increased fall risk with onset of the bilateral pneumonia as of 06/17/2018. 2. Chronic atrial fibrillation. A. On anticoagulation with Eliquis. B. On amiodarone. C. Hospitalized from 05/19/2018 to 06/08/2018 with atrial fibrillation with rapid ventricular respon se and respiratory failure requiring ventilatory support, treatment with Cardizem, amiodarone drip, a nd cardioversion. D. Rate controlled as of 06/17/2018. 3. Recent cellulitis of left lower leg, resolved. 4. 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 A. History of gout that may have resulted in the erosive changes noted in the proximal phalanx. B. Recent superficial ulceration on the toe has healed as of 06/14/2018. C. Stable. No signs of infection as of 06/17/2018. 5. Superficial ulceration on the plantar surface of the right foot over the first metatarsophalangea l joint. A. Improving as of 06/17/2018. 6. Hypertension. 7. Cardiomyopathy. A. Echocardiogram on 05/23/2018 showed an ejection fraction of 40%-50% with some enlargement of the left ventricle and left atrium with moderate mitral regurgitation and IVC dilated. B. Acute on chronic congestive heart failure presenting on 06/16/2018. Complicated by increased maria luisa ma and shortness of breath. Improved with diuresis as of 06/17/2018. 8. Peripheral vascular disease. 9. History of gout. 10. Chronic obstructive pulmonary disease. A. Mild exacerbation as of 06/16/2018. 11. Bilateral pneumonia. A. Chest x-ray showed some chronic alveolar interstitial infiltrates bilaterally, more confluence on the left middle lobe as of 06/16/2018. B. This may be a hospital-acquired pneumonia. C. On IV antibiotics. D. Improved as of 06/17/2018. 12. Chronic obstructive pulmonary disease. Complicated by acute exacerbation secondary to pneumonia and congestive heart failure as of 06/16/2018. B. Improved as of 06/17/2018. 13. Hypoxemia. A. Secondary to acute congestive heart failure on chronic and bilateral pneumonia. B. Improved, now O2 sat up to 95% on room air. 14. Episodes of agitation. A. Probably secondary to the acute illness and hypoxemia. B. Improved as of 06/09/2018. PLAN: Overall, patient looks better this morning. His O2 sat is up 95% on room air. We will contin ue the steroids. Continue the IV Lasix and antibiotics. We will alter antibiotics and change from c eftriaxone to cefepime to give a little better Pseudomonas coverage. The patient cannot take azithro mycin because of potential interaction with the amiodarone. We will repeat chest x-ray in the [facility] and had offered to transfer patient, just recently he said now he is happy to stay here and does no t want to go.
[2018-06-18] MEDS: Cefepime 1 GM in Sodium Chloride 0.9% 100 ML IVPB SCH ×3 (00:41→23:16)
[2018-06-18] MEDS: Chloraseptic Spray 180 ml Bottle PO PRN (03:38)
[2018-06-18] MEDS: Furosemide 40 MG/4 ML VIAL SLOW IVP SCH ×2 (05:26→14:14)
[2018-06-18] MEDS: Levothyroxine Sodium 75 MCG TAB PO SCH (05:27)
[2018-06-18 08:12] LABS: #Lymphocytes 0.6 thou/uL (1.20-3.40); #Monocytes 0.3 thou/uL (0.11-0.59); %Basophils 0.1 % (0.0-1.0); %Lymphocytes 5.6 % (21.0-51.0); %Monocytes 2.8 % (0.0-10.0); %Neutrophils 91.5 % (42.0-75.0); Hemoglobin 10.7 g/dL (14.0-18.0); Mean Corpuscular HGB CONC 32.2 g/dL (32.0-36.0); Mean Corpuscular Hemoglobin 28.4 pg (27.0-31.0); Mean Platelet Volume 6.3 fL (7.4-10.4); Platelet Count 385 thou/uL (130-400); Red Blood Cell (RBC) Count 3.76 mill/uL (4.70-6.10)
[2018-06-18 08:19] LABS: Anion Gap 21 mmol/L (10-20); BUN (Urea Nitrogen) 43 mg/dL (8.4-25.7); Calc. Creatinine Clearance 49 mL/min (70-130); Calcium 9.1 mg/dL (7.8-10.44); Carbon Dioxide 24 mmol/L (23-31); Chloride 101 mmol/L (98-107); Estimated GFR-MDRD 40; Glucose 149 mg/dL (83-110); Potassium 3.8 mmol/L (3.5-5.1); Sodium 142 mmol/L (136-145)
[2018-06-18] MEDS: Allopurinol 100 MG TAB PO SCH ×2 (09:00→20:11)
[2018-06-18] MEDS: Amlodipine 5 MG TAB PO SCH (09:00)
[2018-06-18] MEDS: hydrALAZINE 25 MG TAB PO SCH ×3 (09:01→20:11)
[2018-06-18] MEDS: Amiodarone 200 MG TAB PO SCH ×2 (09:01→20:11)
[2018-06-18] MEDS: Apixaban 5 MG TAB PO SCH ×2 (09:01→20:11)
[2018-06-18] MEDS: Lisinopril 5 MG TAB PO SCH (09:02)
[2018-06-18] MEDS: Lorazepam 1 MG TAB PO PRN ×2 (09:02→20:14)
[2018-06-18] MEDS: Lantiseptic Ointment 130 GM JAR TOP SCH ×2 (09:03→20:12)
[2018-06-18] MEDS: Mometasone/Formoterol 60 PUFF AER INH SCH ×2 (09:04→20:12)
--- NOTE | 2018-06-18 11:13 | RAD ---
UPRIGHT PORTABLE 1 VIEW CHEST: HISTORY: An 83-year-old male with a history of followup pneumonia and congestive heart failure. FINDINGS: Again noted are bilateral reticulonodular and interstitial parenchymal changes in the perihilar regio ns, more prominent in the left perihilar region. Blunting of both costophrenic angles, slightly wors e on the left side. Minimal cardiomegaly. IMPRESSION: Stable bilateral interstitial and reticulonodular parenchymal changes with some scattered alveolar pa renchymal changes. Possibilities include that of asymmetric 3edema and/or bilateral pneumonia/pneumo nitis. Recommend short-term followup for complete clearing or stability. POS: JESUS
[2018-06-18] MEDS: Tamsulosin HCl 0.4 MG CAP PO SCH (20:13)
[2018-06-18] MEDS: Terazosin HCl 5 MG CAP PO SCH (20:13)
[2018-06-19] MEDS: Levothyroxine Sodium 75 MCG TAB PO SCH (05:26)
[2018-06-19] MEDS: Furosemide 40 MG/4 ML VIAL SLOW IVP SCH (05:26)
[2018-06-19 05:29] LABS: #Lymphocytes 0.9 thou/uL (1.20-3.40); #Monocytes 0.6 thou/uL (0.11-0.59); #Neutrophils 8.6 thou/uL (1.40-6.50); %Basophils 0.3 % (0.0-1.0); %Eosinophils 0.4 % (0.0-10.0); %Lymphocytes 9.1 % (21.0-51.0); %Neutrophils 84.3 % (42.0-75.0); Hemoglobin 10.2 g/dL (14.0-18.0); Mean Corpuscular HGB CONC 32.2 g/dL (32.0-36.0); Mean Corpuscular Hemoglobin 28.4 pg (27.0-31.0); Mean Corpuscular Volume 88.3 fL (78.0-98.0); Mean Platelet Volume 6.6 fL (7.4-10.4); Platelet Count 384 thou/uL (130-400); Red Blood Cell (RBC) Count 3.59 mill/uL (4.70-6.10); White Blood Cell (WBC) Count 10.2 thou/uL (4.8-10.8)
[2018-06-19 05:35] LABS: Anion Gap 18 mmol/L (10-20); BUN (Urea Nitrogen) 58 mg/dL (8.4-25.7); Carbon Dioxide 25 mmol/L (23-31); Chloride 100 mmol/L (98-107); Glucose 125 mg/dL (83-110); Potassium 3.5 mmol/L (3.5-5.1); Sodium 139 mmol/L (136-145)
[2018-06-19 05:50] LABS: Calc. Creatinine Clearance 46 mL/min (70-130); Estimated GFR-MDRD 38
[2018-06-19] MEDS: predniSONE 20 MG TAB PO SCH (08:46)
[2018-06-19] MEDS: Lisinopril 5 MG TAB PO SCH (08:46)
[2018-06-19] MEDS: Apixaban 5 MG TAB PO SCH ×2 (08:48→20:42)
[2018-06-19] MEDS: Allopurinol 100 MG TAB PO SCH ×2 (08:49→20:39)
[2018-06-19] MEDS: Amlodipine 5 MG TAB PO SCH (08:49)
[2018-06-19] MEDS: Amiodarone 200 MG TAB PO SCH ×2 (08:49→20:40)
[2018-06-19] MEDS: hydrALAZINE 25 MG TAB PO SCH ×3 (08:50→20:40)
[2018-06-19] MEDS: Lorazepam 1 MG TAB PO PRN ×2 (08:59→20:39)
[2018-06-19] MEDS: Mometasone/Formoterol 60 PUFF AER INH SCH ×2 (09:05→20:44)
[2018-06-19] MEDS: Cefdinir 300 MG CAP PO SCH ×2 (09:05→20:38)
[2018-06-19] MEDS: Furosemide 40 MG TAB PO SCH ×2 (09:05→15:25)
[2018-06-19] MEDS: Lantiseptic Ointment 130 GM JAR TOP SCH ×2 (09:05→20:48)
--- NOTE | 2018-06-19 09:30 | PRG ---
DATE OF SERVICE: 06/18/2018 SUBJECTIVE: The patient says he feels better today. He is sitting up in a bedside chair with nasal cannula on 2 liters, has just finished his breakfast. He is very talkative and did not have any shor tness of breath with his long conversation. He looks much better. His vital signs show a temperatur e of 98.3, pulse 123, respirations 21, O2 sat on 2 liters 91%, blood pressure 111/63. This morning's vital signs of Mr. Willis shows a temperature 97.6, pulse 92, respirations 22, O2 sat 95% on 2 liters , blood pressure 136/64. His weight is up to 225, but this is the first weight he has had since 05/22. Then, his weight was 214. His lungs are clear with good breath sounds. There were no rales , wheeze, or rhonchi. Heart, irregularly irregular rhythm. Extremities: A 1+ edema. LABORATORY DATA: Lab shows an H and H of 10.7 and 33.1, white cell count 11,000 with 92% segs, 6% ly mphocytes, and platelet count of 385,000. Sodium 142, potassium 3.8, BUN is 43, creatinine 1.66, GFR 40. FBS 149. BNP is 836. His chest x-ray shows cardiomegaly. There are chronic alveolar intersti tial changes. There is increased infiltrate of the left middle lobe and there appears to be blunting and pacing, particularly of the left costophrenic angle and some on the right, probably from effusio ns. Overall, though the x-ray looks a little better. ASSESSMENT: 1. Generalized weakness. A. Initial improvement. Some increased weakness and increased fall risk with onset of the bilateral pneumonia as of 06/17/2018. B. Improved as of 06/18/2018, tolerating sitting up in chair and ambulating with his walker as of . 2. Chronic atrial fibrillation. A. On anticoagulation with Eliquis. B. On amiodarone. C. Hospitalized from 05/19/2018 to 06/08/2018 with atrial fibrillation with rapid ventricular respon se and respiratory failure requiring ventilatory support, treatment with Cardizem, amiodarone drip, a nd cardioversion. D. Rate controlled as of 06/18/2018. 3. Recent cellulitis of left lower leg, resolved. 4. 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 A. History of gout that may have resulted in the erosive changes noted in the proximal phalanx. B. Recent superficial ulceration on the toe has healed as of 06/14/2018. C. Stable. No signs of infection as of 06/17/2018. 5. Superficial ulceration on the plantar surface of the right foot over the first metatarsophalangea l joint. A. Improving as of 06/17/2018. 6. Hypertension. 7. Cardiomyopathy. A. Echocardiogram on 05/23/2018 showed an ejection fraction of 40%-50% with some enlargement of the left ventricle and left atrium with moderate mitral regurgitation and IVC dilated. B. [id number] congestive heart failure on 06/16/2018, manifest with increased edema and shortn ess of breath. 8. Peripheral vascular disease. 9. History of gout. 10. Chronic obstructive pulmonary disease. A. Mild exacerbation as of 06/16/2018. 11. Bilateral pneumonia. A. Chest x-ray showed some chronic alveolar interstitial infiltrates bilaterally, more confluence on the left middle lobe as of 06/16/2018. B. Improved. Chest x-ray shows mostly infiltrates in the left middle lobe as of 06/18. C. We will continue IV antibiotics. 12. Chronic obstructive pulmonary disease. Complicated by acute exacerbation secondary to pneumonia and congestive heart failure as of 06/16/2018. B. Improved with clear lungs as of 06/18/2018. 13. Hypoxemia. A. Secondary to acute congestive heart failure on chronic and bilateral pneumonia. B. Improved, still requiring intermittently O2 at 2 liters by nasal cannula as of 06/18/2018. 14. Episodes of agitation. A. Probably secondary to the acute illness and hypoxemia. B. Improved as of 06/18/2018. 15. Chronic kidney disease. A. Some decline in GFR to 40 with the recent diuresis as of 06/18/2018. PLAN: The patient looks much better this morning. His lungs are clear. There were no rales or whee zes. His chest x-ray looks a little better, still shows significant infiltrate in the left middle lo be and still shows some evidence of pleural effusions, more on the left than the right. Clinically, though he is much better. We will continue the IV antibiotics with cefepime. Continue the IV Lasix. We will discontinue the IV Solu-Medrol and place him on oral prednisone.
--- NOTE | 2018-06-19 09:34 | PRG ---
DATE OF SERVICE: 06/19/2018 SUBJECTIVE: The patient said he is doing better. He wants to go home. He says he is not having any trouble with his breathing. OBJECTIVE: The patient is sitting up in a chair, is very talkative, but does not appear in any distr ess. He is not having respiratory problem. The patient's temperature is 97.1, pulse 106, respirati ons 22, O2 sat 92% on 2 liters, blood pressure 103/58. His O2 sat on room air is 88 to 89%. His lenore ght is 228. His lungs are clear. There are no wheezes or rhonchi. Heart, irregular regular rhythm. Extremities: 1+ edema. His lab shows an H&H of 10.2 and 31.7, WBC count 10,200 with 84% segs, 9% lymphocytes and a platelet count of 384,000. Sodium 139, potassium 3.5, BUN 58, creatinine 1.74, GFR 38, FBS 125. Chest x-ray that was done yesterday was reviewed by radiologist, which they felt like that there were bilateral reticular nodular interstitial changes in the perihilar region, more prominent on the left . There is still some blunting of the costophrenic angles. There is mild cardiomegaly. The radiolo gist felt this could represent either edema from CHF or bilateral pneumonia. They recommend short-te rm follow up. ASSESSMENT: 1. Generalized weakness. A. Improved as of 06/19/2018. 2. Chronic atrial fibrillation. A. On anticoagulation with Eliquis. B. On amiodarone. C. Hospitalized from 05/19/2018 to 06/08/2018 with atrial fibrillation with rapid ventricular respon se and respiratory failure requiring ventilatory support, treatment with Cardizem, amiodarone drip, a nd cardioversion. D. Rate controlled as of 06/19/2018. 3. Recent cellulitis of left lower leg, resolved. 4. 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 A. History of gout that may have resulted in the erosive changes noted in the proximal phalanx. B. Recent superficial ulceration on the toe has healed as of 06/14/2018. C. Stable. No signs of infection as of 06/19/2018. 5. Superficial ulceration on the plantar surface of the right foot over the first metatarsophalangea l joint. A. Improving as of 06/19/2018. 6. Hypertension. 7. Cardiomyopathy. A. Echocardiogram on 05/23/2018 showed an ejection fraction of 40%-50% with some enlargement of the left ventricle and left atrium with moderate mitral regurgitation and IVC dilated. B. [id number] congestive heart failure presenting on 06/16/2018. 1. Improved as of 06/19/2018. 8. Peripheral vascular disease. 9. History of gout. 10. Chronic obstructive pulmonary disease. A. Acute exacerbation, improving as of 06/19/2018. 11. Bilateral pneumonia. A. Chest x-ray shows a reticular nodular interstitial infiltrate, particularly in the perihilar area s more on the left than the right. Follow up chest x-ray on 06/18/2018 showed stability. B. Improved as of 06/19/2018. C. On IV antibiotics. D. Improved as of 06/17/2018. 12. Chronic obstructive pulmonary disease. Complicated by acute exacerbation secondary to pneumonia and congestive heart failure as of 06/16/2018. B. Improved as of 06/17/2018. 13. Hypoxemia. A. Secondary to acute congestive heart failure on chronic and bilateral pneumonia. B. Stable with O2 saturation 88-89% on room air, 92-95% on 2 liters as of 06/19/2018. 14. Episodes of agitation. A. Probably secondary to the acute illness and hypoxemia. B. Improved as of 06/19/2018. PLAN: The patient looks a little better. His weight is still up. His lungs though remain clear. H e is really insistent on going home. Beginning to see some continual decline in the renal function a s a result of the diuresis. The x-rays looked like some of these are more chronic changes. We will try shifting him to oral Lasix and oral antibiotics and if he tolerates this well, we will try let hi m go home tomorrow. I have recommended that he stay longer, but he really is very insistent upon clovis t, but is agreeable to stay until tomorrow.
[2018-06-19] MEDS: Terazosin HCl 5 MG CAP PO SCH (20:39)
[2018-06-19] MEDS: Tamsulosin HCl 0.4 MG CAP PO SCH (20:42)
[2018-06-20 04:05] VITALS: BMI 32.6
[2018-06-20] MEDS: Levothyroxine Sodium 75 MCG TAB PO SCH (05:40)
[2018-06-20 07:22] VITALS: BP 114/63; TEMP 97.9
[2018-06-20] MEDS: predniSONE 20 MG TAB PO SCH (08:16)
[2018-06-20] MEDS: Lisinopril 5 MG TAB PO SCH (08:16)
[2018-06-20] MEDS: hydrALAZINE 25 MG TAB PO SCH (08:17)
[2018-06-20] MEDS: Apixaban 5 MG TAB PO SCH (08:17)
[2018-06-20] MEDS: Amiodarone 200 MG TAB PO SCH (08:18)
[2018-06-20] MEDS: Furosemide 40 MG TAB PO SCH (08:18)
[2018-06-20] MEDS: Amlodipine 5 MG TAB PO SCH (08:18)
[2018-06-20] MEDS: Lantiseptic Ointment 130 GM JAR TOP SCH (08:19)
[2018-06-20] MEDS: Cefdinir 300 MG CAP PO SCH (08:19)
[2018-06-20] MEDS: Mometasone/Formoterol 60 PUFF AER INH SCH (08:19)
[2018-06-20] MEDS: Allopurinol 100 MG TAB PO SCH (08:19)
--- NOTE | 2018-06-20 11:50 | DIS ---
FINAL DIAGNOSES: 1. Generalized weakness. A. Improved as of 06/20/2018. 2. Chronic atrial fibrillation. A. On anticoagulation with Eliquis. B. On amiodarone. C. Hospitalized from 05/19/2018 to 06/08/2018 with atrial fibrillation with rapid ventricular respon se and respiratory failure requiring ventilatory support, treatment with Cardizem, amiodarone drip, a nd cardioversion. D. Rate controlled as of 06/20/2018. 3. Recent cellulitis of left lower leg, resolved. 4. 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 A. History of gout that may have resulted in the erosive changes noted in the proximal phalanx. B. Recent superficial ulceration on the toe has healed as of 06/14/2018. C. Stable. No signs of infection as of 06/20/2018. 5. Superficial ulceration on the plantar surface of the right foot over the first metatarsophalangea l joint. A. Continues to heal, wound clean and now about 5 mm in diameter as of 06/20/2018. 6. Hypertension. 7. Cardiomyopathy. A. Echocardiogram on 05/23/2018 showed an ejection fraction of 40%-50% with some enlargement of the left ventricle and left atrium with moderate mitral regurgitation and IVC dilated. B. Loevh-ul-haqxmft congestive heart failure presenting on 06/16/2018. 1. Clinically resolved as of 06/20/2018. 8. Peripheral vascular disease. 9. History of gout. 10. Chronic obstructive pulmonary disease. A. Acute exacerbation, resolving as of 06/20/2018. 11. Bilateral pneumonia. A. Chest x-ray shows a reticular nodular interstitial infiltrate, particularly in the perihilar area s more on the left than the right. Follow up chest x-ray on 06/18/2018 showed stability. B. Improved as of 06/20/2018. 13. Hypoxemia. A. Secondary to acute congestive heart failure on chronic and bilateral pneumonia. B. Resolved with O2 sat on room air 94% as of 06/20/2018. 14. Episodes of agitation. A. Probably secondary to the acute illness and hypoxemia. B. Improved as of 06/20/2018. SUMMARY: The patient is an 83-year-old white male who lives with a daughter and is independent of sc s ADLs, but requires assistance with his instrumental ADLs. He has a history of atrial fibrillation, peripheral vascular disease, BPH and gout. The patient was hospitalized at [facility] 05/19/2018 until 06/07/2018 with atrial fibrillation with rapid ventricular response, complicated by congestive heart failure and respiratory failure. He required a Cardizem drip and amiodarone drip and eventually rate was controlled. Ejection fraction was 40-50% with a dilated inferior vena cava. Due to the respiratory failure he required intubation and respiratory support for several days, the n with resolution of the failure he improved and was able to be extubated. The patient again had ano ther episode of atrial fibrillation with rapid ventricular response requiring the Cardizem and amioda darius drip. He was treated for an aspiration pneumonia while there that had clinically resolved and t he cellulitis of the left lower leg that had resolved. He had been admitted with an encephalopathy s econdary to the acute illness which had improved. The patient was transferred to [facility] on 06/08/2018. He was referred back to [facility] because the left great toe was red and sw elled and he was very confused and agitated. The patient was readmitted to [facility] 06/08/2018 until 06/13/2018. While there, the acute to encephalopathy resolved. He was evaluated by the surgeon and the left great toe was felt not to be acutely infected. His toes had looked the s michael as it always had. He had an ulceration on the medial aspect that was all healing. He did show s ome destructive changes in the distal portion of the proximal phalanx of the left great toe that was felt to be chronic and possibly related to erosive changes from gout, which he has a history of. He was evaluated by the vascular surgeon and he felt like that he did have peripheral vascular disease, but had enough circulation demonstrated by reasonable capillary refill and was healing the wound on t he medial aspect of the foot. He did not recommend any intervention. The patient was left very weak and was transferred to extended care at [facility] on 06/13/2018 due to the weakness and decon ditioning for purpose of physical therapy and strengthening. HOSPITAL COURSE: The patient was readmitted to [facility] on 06/13/2018. He was alert, talkative, appeared in no distress. His left great toe showed chronic changes. The toe was a little large, had a pink cue on dependency. The ulceration on the medial aspect had healed and had a little overlying eschar. There was no tenderness or drainage. The patient had an ulceration on t he plantar aspect of the right foot over the first MP joint. This was very small and very clean with no surrounding redness, but there was some surrounding callus. The patient had moderate capillary r efill in the toes, previous amputation of the left second toe. Physical therapy began working with jr hylton and during his hospitalization he made good progress with physical therapy where he was walkin g up to 125 feet with his rolling walker and caregiver assistance. He was transferring with just car egiver assist which was just minimal. During the hospitalization, he had no problem with the left gr eat toe. The ulcer on the plantar aspect of the right foot overlying the head of the first MP joint improved and by the time of his discharge this had decreased to 5 mm in diameter, was clean with no surrounding redness. This was tended with just cleansing daily and applying Mepilex. The patient di d develop increasing shortness of breath with expiratory wheeze and some rales at the right base and drop in his O2 sat to 88-89%. Chest x-ray showed evidence of some cardiomegaly. His lungs showed a reticular nodular pattern with increased interstitial infiltrate, particularly in the right middle lo be. Some of this was noted on x-ray that had been done 2 weeks previously. The patient's BNP was el evated to 800. The patient was not running any fever. The patient had small blunting of the costoph renic angles from small effusions. The patient was felt to have developed a bilateral pneumonia and also some congestive failure. The patient was treated with IV cefepime and placed on supplemental O2 and IV Lasix. He was also started on IV Solu-Medrol. The pneumonia and congestive failure had crea desiree an acute exacerbation of his COPD. He continued to improve. His lungs cleared with resolution o f the rales, wheezes and rhonchi. His O2 sat improved to 94% on room air on the day of his discharge . The patient was switched to oral antibiotics on the day prior to discharge and did well, remained afebrile. He was switched to oral prednisone prior to 2 days before his discharge with the anticipat ion of this being gradually tapered. The patient continued to improve. Although he would have impro blanquita by further hospitalization for continued care of the wound and for continued PT and OT, he was ve ry insistent on going home. He said he would have adequate care at home and home health would also a ssist with his care. His condition was stable. He remained afebrile with an O2 sat of 94% on the da y of his discharge. The patient was discharged on 06/20/2018. The patient has been on anticoagulants due to his atrial fibrillation with Eliquis, which will be con tinued. His blood pressure remained under good control during the hospitalization DIET: Regular diet, mechanical soft. No added salt. ACTIVITIES: Ambulate with his walker with wheels. We will arrange for home health to see the maria ines t and for him to have PT and OT in the home, wound care of the small ulceration on the plantar aspect of the right foot should be cleansed daily with saline and overlying Mepilex dressing applied. MEDICATIONS: Tylenol 325 mg 2 every 4 hours as needed, allopurinol 100 mg b.i.d., amiodarone 200 mg b.i.d. and then reduce to daily on 06/24/2018. Amlodipine 5 mg daily, Eliquis 2.5 mg b.i.d., cefdini r 300 mg b.i.d. x7 days, furosemide 40 mg b.i.d., hydralazine 25 mg t.i.d., DuoNeb by nebulizer q.i.d . and q.4h. as needed, levothyroxine 75 mcg daily, lisinopril 2.5 mg daily, tamsulosin 0.4 mg at bedt gerardo, terazosin 10 mg at bedtime, pantoprazole 40 mg daily, Dulera 2 puffs b.i.d., prednisone 10 mg 3 tablets daily x3 days, 2 tablets daily x3 days, 1 tablet daily x3 days, and then stop. FOLLOW UP: The patient will need to be seen in followup in my office or Dr. Kristie Moreira who he had been seeing in 2 weeks with a chest x-ray, CBC and BMP. CODE STATUS: DNR.
--- NOTE | 2018-06-21 21:48 | PQF ---
ZORAIDA DUNBAR GROVER MD [id number] CLINICAL DOCUMENTATION CLARIFICATION FORM: POST DISCHARGE Addendum to original discharge summary date: ____ Late entry note date: __ DATE: 06/21/2018 ATTN: CASPER BELL MD Please exercise your independent, professional judgment in responding to the clarification form. Clinical indicators are provided on the bottom of this form for your review Please check appropriate box(s): HEART FAILURE: A. TYPE: [ ] Systolic / HFrEF [ y ] Diastolic / HFpEF [ ] Combined Systolic / Diastolic B. ACUITY [ ] Acute [y ] Acute on Chronic [ ] Chronic [ ] Other diagnosis [ ] Unable to determine In addition, please specify: Present on Admission (POA): [ ] Yes [ n ] No [ ] Unable to determine For continuity of documentation, please document condition throughout progress notes and discharge summary. Thank You. CLINICAL INDICATORS - SIGNS / SYMPTOMS / LABS DC SUMMARY Acute on chronic congestive heart failure presenting on 06/16/2018 Clinically resolved 06/20/2018 H&P PAST HISTORY: Congestive heart failure ECG on 05/23/18 showed ejection fraction of 40%-50% No evidence of congestive heart failure present PN 06/19 Acute on chronic congestive heart failure presenting on 06/16/2018 Improved as of 06/19/2018 Hypoxemia secondary to CHF PN 06/18 Acute on chronic congestive heart failure on 06/16/2018, manifest with increased edema and shortness of breath Shows evidence of pleural effusions PN 06/17 Increased edema in legs Acute on chronic congestive heart failure on 06/16/2018, complicated by increased edema and shortness of breath Improved with diuresis PN 06/16 Evidence of mild failure, some small pleural effusions as of 06/16/2018 PN 06/15 No evidence of acute congestive heart failure as of 06/15/2018 RISKS: CKD Hypertension TREATMENTS: IV diuretics Oxygen Lasix Chest x-rays (This form is maintained as a part of the permanent medical record) 2014 [email or web address] All Rights Reserved [email or web address] [phone] [email or web address]
[2018-06-24] MEDS ORDERED: Amiodarone 200 MG TAB PO SCH (09:00)
== END 2018-06-20 14:50 | disposition home health service (06) | DRG 947 ==
LOC: UNDOADMIN 15:00 → MADMS 15:00
PROVIDERS: ADMIT Family Medicine; ATTEND Family Medicine
DX: R53.1 Weakness (principal); J18.9 Pneumonia, unspecified organism; I50.33 Acute on chronic diastolic (congestive) heart failure; I42.9 Cardiomyopathy, unspecified; J90 Pleural effusion, not elsewhere classified; J44.1 Chronic obstructive pulmonary disease with (acute) exacerbation; I13.0 Hypertensive heart and chronic kidney disease with heart failure and stage 1 through stage 4 chronic kidney disease, or unspecified chronic kidney disease; I73.9 Peripheral vascular disease, unspecified; M10.9 Gout, unspecified; N40.0 Benign prostatic hyperplasia without lower urinary tract symptoms; I48.2 Chronic atrial fibrillation; Z87.01 Personal history of pneumonia (recurrent); E03.9 Hypothyroidism, unspecified; K21.9 Gastro-esophageal reflux disease without esophagitis; Z96.641 Presence of right artificial hip joint; Z89.422 Acquired absence of other left toe(s); Z85.820 Personal history of malignant melanoma of skin; Z66 Do not resuscitate; Z79.01 Long term (current) use of anticoagulants; L97.519 Non-pressure chronic ulcer of other part of right foot with unspecified severity; I34.0 Nonrheumatic mitral (valve) insufficiency; N18.9 Chronic kidney disease, unspecified; Z87.891 Personal history of nicotine dependence
CPT/HCPCS: 36415; 71045; 71046; 80048; 80053; 83880; 85025; 94640; 94664; G8987-GO-CL; G8988-GO-CH; G8996-GN-CJ; G8997-GN-CJ; J0692; J0696; J1940; J2920; J7050; J7506; J7620